=== PATIENT | female | born 1995 | race Caucasian/White ===

== ENCOUNTER → 2021-07-18 | Outpatient (CLI) | payer OTHER ==
[2021-07-19 05:07] LABS: RUBEOLA (MEASLES) IGG >300.0 AU/mL (Immune >16.4)
[2021-07-20 08:07] LABS: QUANTIFERON, TB GOLD PLUS Negative (Negative)
[2021-07-20 11:44] LABS: HEPATITIS BE ANTIBODY Positive (Negative)
== END | disposition home or self-care (01) ==
LOC: LABMN 10:47
PROVIDERS: ATTEND Family Medicine
DX: Z02.89 Encounter for other administrative examinations (principal); Z11.3 Encounter for screening for infections with a predominantly sexual mode of transmission; Z20.828 Contact with and (suspected) exposure to other viral communicable diseases; Z20.1 Contact with and (suspected) exposure to tuberculosis
CPT/HCPCS: 86480; 86592; 86706; 86707; 86735; 86762; 86765; 86787; 87491; 87591

== ENCOUNTER → 2021-08-02 | Outpatient (CLI) | payer OTHER | END | disposition home or self-care (01) | LOC: LABMN 08:56 | PROVIDERS: ATTEND Family Medicine | DX: Z02.89 Encounter for other administrative examinations (principal); Z11.3 Encounter for screening for infections with a predominantly sexual mode of transmission; Z20.828 Contact with and (suspected) exposure to other viral communicable diseases; Z20.1 Contact with and (suspected) exposure to tuberculosis | CPT/HCPCS: 86706; 87340 ==